=== PATIENT | female | born 1980 | race Caucasian/White ===

== ENCOUNTER → 2017-08-08 | Outpatient (CLI) | payer OTHER ==
--- NOTE | 2017-08-08 12:52 | US ---
EXAMINATION TYPE: US pelvic complete DATE OF EXAM: 08/08/2017 COMPARISON: NONE CLINICAL HISTORY: E28.2 POLYCYSTIC OVARIAN SYNDROME. TECHNIQUE: . Transabdominal sonographic images of the pelvis were acquired. Patient declined transv aginal sonographic images at this time. Date of LMP: 2-3 weeks ago EXAM MEASUREMENTS: Uterus: 7.1 x 3.4 x 4.1 cm Endometrial Stripe: 0.4 cm Right Ovary: 3.7 x 2.2 x 1.8 cm Left Ovary: 2.5 x 1.8 x 1.4 cm 1. Uterus: Anteverted wnl 2. Endometrium: wnl 3. Right Ovary: Echogenic foci visualized measuring 0.3 cm 4. Left Ovary: wnl 5. Bilateral Adnexa: wnl 6. Posterior cul-de-sac: wnl IMPRESSION: 1. Suspicious peripheral follicles on the ovaries to suggest polycystic ovarian disease are not evide nt on the current examination. 2. Small echogenic foci without shadowing within the right ovary. Follow-up is recommended.
== END | disposition home or self-care (01) ==
LOC: RADUSWWP 07:03
PROVIDERS: ATTEND Internal Medicine Endocrinology, Diabetes & Metabolism
DX: E28.2 Polycystic ovarian syndrome (principal)
CPT/HCPCS: 76856

== ENCOUNTER → 2018-03-31 | Outpatient (CLI) | payer OTHER ==
--- NOTE | 2018-03-31 13:32 | MM ---
Reason for exam: clinical finding. Baseline mammogram. History: Patient has history of other cancer at age 26. Took hormonal contraceptives beginning at age 18. Physical Findings: Nurse Summary: 0.5cm nodule in the right breast at 12 o'clock and 6 o'clock (nurse kp). MG 3D Diag Mammo W/Cad BREONNA Bilateral CC and MLO view(s) were taken. The breast tissue is heterogeneously dense. This may lower the sensitivity of mammography. There is a 8 x 5mm mass upper outer quadrant 10cm from nipple on the left that persists on additional views. Stereotactic core biopsy recommended. No suspicious abnormality on the right. These results were verbally communicated with the patient and result sheet given to the patient on 03/31/18. ASSESSMENT: Incomplete: need additional imaging evaluation, BI-RAD 0 RECOMMENDATION: Ultrasound of both breasts. (right palpable, left upper inner quadrant)
--- NOTE | 2018-03-31 13:35 | USB ---
Reason for exam: additional evaluation requested from abnormal screening. History: Patient has history of other cancer at age 26. Took hormonal contraceptives beginning at age 18. US Breast Limited BILAT Right limited breast ultrasound including focal area of concern, retroareolar and axilla demonstrates a 0.6 x 0.4 x 0.7cm mixed, hypoechoic lesion at 8 o'clock for which a biopsy is recommended and duct ectasia at the nipple. Left limited breast ultrasound including focal area of concern, retroareolar and axilla demonstrates a 0.5 x 0.3cm elongated lesion at 8 o'clock, appears as fibroglandular tissue. These results were verbally communicated with the patient and result sheet given to the patient on 03/31/18. ASSESSMENT: Suspicious, BI-RAD 4 RECOMMENDATION: Ultrasound core biopsy of the right breast. Stereotactic core biopsy of the left breast. Called Dr. Pacheco with mammographic findings and has scheduled an appointment for the patient for 04/10/18 at 11:[address] Art. Biopsy scheduled for 04/16/18 at 8 o'clock. PRELIMINARY REPORT CALLED AND FAXED TO DR. ART ON 03/31/18.
== END | disposition home or self-care (01) ==
LOC: RADMAMWWP 09:30
PROVIDERS: ATTEND Family Medicine
DX: R92.8 Other abnormal and inconclusive findings on diagnostic imaging of breast (principal); N63.10 Unspecified lump in the right breast, unspecified quadrant
CPT/HCPCS: 77062; 77066

== ENCOUNTER → 2018-04-10 | Outpatient (CLI) | payer SELFPAY ==
[2018-04-10 12:55] VITALS: BP 123/75; PULSE 107; RESP 20; TEMP 98.4; BMI 36.0
--- NOTE | 2018-04-10 13:34 | P.GSHP ---
History of Present Illness H&P Date: 04/10/18 Chief Complaint: Palpable abnormality left breast, radiographic abnormality by ultrasound an The patient is a 38-year-old white female who approximately July of this year noticed some nodularity in the lower left breast. This has increased in size. It is not cyclical in nature and is nontender. As a result of that she underwent radiographic workup and on radiographic workup a separate area of the left breast in the upper outer quadrant region was noted to have increased nodularity. This is an 8 x 5 mm mass at the upper outer quadrant 10 cm from the nipple which persisted on additional views. Ultrasound of this area did not reveal any specific lesion of concern in the left breast. In the right breast however on ultrasound she was noted to have a 0.6 x 0.7 cm mixed hypoechoic lesion at 8:00 for which ultrasound-guided core biopsy was recommended. She has no history of any trauma or infection in her breast. Family History: 1. ? colon cancer on her mothers side uncertain as her mother is adopted Hormonal history: Menarche: 14 Pregnancies: 3, 3 children, first born at 19, did not breast-feed periods: irregular BCP: none hormones: none Past surgical history: 1. 2 2. LEEP procedure 3. Ablation 4. Tonsillectomy Past medical history: 1. hyperactive thyroid/radioactive iodine Graves disease 2. hypothyroid now 3. HPV Social History: smoke: none alcohol: 1x/month drugs: Marijuana relational daily - EENT Eyes: denies blurred vision, denies pain Ears: deny: decreased hearing, tinnitus Ears, nose, mouth and throat: Denies headache, Denies sore throat - Breasts Breasts: bilateral: as per HPI - Cardiovascular Cardiovascular: Denies chest pain, Denies shortness of breath - Respiratory Comment: chronic bronchitis Respiratory: Denies cough, Denies 7 - Genitourinary (Female) Comment: irregular periods Genitourinary: Denies dysuria, Denies hematuria - Menstruation Comment: Status post uterine ablation Menstruation: Reports cycle variable - Musculoskeletal Comment: 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 left sciatica - Integumentary Integumentary: Denies pruritus, Denies rash - Neurological Neurological: Denies numbness, Denies weakness - Psychiatric Psychiatric: Denies anxiety, Denies depression - Endocrine Comment: hypothyroid - Hematologic/Lymphatic Comment: none - Allergic/Immunologic Comment: as above Past Medical History Past Medical History: Cancer, Thyroid Disorder Additional Past Medical History / Comment(s): cervical History of Any Multi-Drug Resistant Organisms: None Reported Past Surgical History: Section, Tonsillectomy Past Anesthesia/Blood Transfusion Reactions: No Reported Reaction Past Psychological History: Depression Smoking Status: Never smoker Past Alcohol Use History: Occasional Past Drug Use History: Marijuana - Past Family History Mother Family Medical History: Thyroid Disorder Father History Unknown: Yes Medications and Allergies Home Medications Medication Instructions Recorded Confirmed Type Levothyroxine Sodium 137 mcg PO DAILY 04/08/18 04/10/18 History Allergies Allergy/AdvReac Type Severity Reaction Status Date / Time aspirin Allergy Rash/Hives Verified 04/08/18 12:52 codeine Allergy Rash/Hives Verified 04/08/18 12:52 Surgical - Exam Vital Signs Temp Pulse Resp BP Pulse Ox 98.4 F 107 H 20 123/75 100 04/10/18 12:49 04/10/18 12:49 04/10/18 12:49 04/10/18 12:49 04/10/18 12:49 BMI 36 - General well developed, well nourished, no distress, obese - Eyes normal ocular movement - ENT no hearing loss, no congestion - Neck no masses, trachea midline - Respiratory normal respiratory effort, clear to auscultation - Cardiovascular Rhythm: regular Heart Sounds: normal: S1, S2 - Abdomen Abdomen: soft, non tender, no guarding, no rigid, no rebound - Integumentary no rash, no abnormal pigmentation - Musculoskeletal normal gait, normal posture - Psychiatric oriented to time, oriented to person, oriented to place, speech is normal, memory intact Rest examination: Right breast: Multiple positional exam no dominant masses or nodules of concern there is some prominent inframammary ridge tissue but nothing of concern, the right breast is smaller than the left breast Right axilla: No adenopathy of concern Left breast: Multi-positional exam dominant masses or nodules of concern Left axilla: No adenopathy of concern Results mammogram and ultrasound reports reviewed Assessment and Plan Assessment: Impression: 1. Patient with radiographic abnormality ultrasound abnormality right breast for ultrasound-guided core biopsy 2. Patient with mammographic abnormality left breast are detected core biopsy of left breast 3. Hypothyroidism 4. Intermittent sciatica 5. PVD . Fibrocystic change prominent inframammary ridge on the right breast lower inner quadrant Plan: 1. Right breast ultrasound-guided core biopsy 2. Stereotactic core biopsy of the left breast 3. Follow-up 1 week after biopsies Her. Close clinical surveillance prominent inframammary ridge on the right The skin benefits history tactic an ultrasound core biopsies were discussed with the patient she wishes to proceed this will be scheduled in the near future. CC: Dr. Pacheco
== END ==
LOC: WWCWWP 12:25
PROVIDERS: ATTEND Surgery
DX: Z53.9 Procedure and treatment not carried out, unspecified reason (principal)

== ENCOUNTER → 2018-04-16 | Day surgery (SDC) | payer OTHER ==
[2018-04-16 07:26] VITALS: RESP 16; BMI 34.9
[2018-04-16 09:06] VITALS: BP 107/72; PULSE 69; TEMP 97.9
--- NOTE | 2018-04-16 10:10 | MM ---
EXAMINATION TYPE: MG stereo VAD BX LT DATE OF EXAM: 04/16/2018 COMPARISON: Prior mammogram March 31, 2018. CLINICAL HISTORY: Abnormal mammogram TECHNIQUE: Stereotactic guided core biopsy of left breast. FINDINGS: The procedure of stereotactic guided core biopsy was explained to the patient. Benefits, alternatives, and risks were discussed. An informed consent was then obtained. Cranial pathway was chosen as lesion is best seen on CC view. I performed the localization, then surgeon, Dr. Art performed the remainder of the procedure. A vacuum assisted biopsy gun was used to obtain multiple core samples. The patient tolerated the procedure well without any immediate complication. The patient was kept in the radiology department for short stay after the procedure and then discharged home in stable condition. Post biopsy mammogram shows the clip to appear in satisfactory position relative to the targeted area of concern on the preprocedure images. IMPRESSION: SUCCESSFUL, UNCOMPLICATED STEREOTACTIC GUIDED CORE BIOPSY OF AREA OF CONCERN IN THE LEFT BREAST, FULL PATHOLOGY RESULTS TO FOLLOW. Low index of suspicion noted at time of procedure. Favor low lying benign lymph node. Pathology Results: Benign LEFT BREAST, STEREOTACTIC CORE BIOPSY: Fibroadenoma. Background fibrocystic changes including rare microcalcifications. Recommendation Follow up mammogram of the left breast in 6 months. MTDD
--- NOTE | 2018-04-16 10:48 | USB ---
EXAMINATION TYPE: US discontinued breast core RT DATE OF EXAM: 04/16/2018 CLINICAL HISTORY: R92.8 ABNORMAL MAMMOGRAM. Abnormal ultrasound. TECHNIQUE: Ultrasound guided core biopsy of right breast. COMPARISON: Prior bilateral breast ultrasound March 31, 2018. FINDINGS: The procedure of ultrasound guided core biopsy was explained to the patient. Benefits, alt ernatives, and risks were discussed. An informed consent was then obtained. The patient was placed in supine positioning for imaging and for the procedure. Preprocedure scannin g however failed to show persistent suspicious oval hypoechoic 6 x 4 x 7 mm lesion 8:00 position zone B C of the right breast. Because persistent suspicious lesion did not persist, biopsy was canceled. Reason for cancellation of biopsy was explained to patient. Patient was agreeable to short-term follo w-up ultrasound in 6 months time and cancellation. IMPRESSION: Unsuccessful, canceled ultrasound guided core biopsy of area of concern in the right norma st, suspicious lesion not identified today. BI-RADS 3 probable benign findings. Recommendation: Precautionary 6 month follow-up diagnostic right breast ultrasound.
--- NOTE | 2018-04-16 13:43 | P.OP ---
Date of Procedure: 04/16/18 Preoperative Diagnosis: Left breast upper inner quadrant nodular area not seen on ultrasound Postoperative Diagnosis: Same Procedure(s) Performed: Left breast stereotactic core biopsy Anesthesia: local Surgeon: Judy Art Estimated Blood Loss (ml): 0 Pathology: other (Breast tissue) Condition: stable Disposition: same day Indications for Procedure: Area of nodularity in the left breast upper inner quadrant area of concern on mammogram, this was not documented on ultrasound, therefore stereotactic core biopsy was recommended Operative Findings: Breast tissue Description of Procedure: The patient was taken to the sterile tactic core biopsy room. The patient preoperatively had undergone bilateral breast examination were noted no dominant masses or nodules of concern were identified in either breast. The risks and benefits of the procedure including bleeding and infection reaction to the anesthetic and alternatives including watchful waiting versus open biopsy in the operating room were discussed with the patient. She wished to proceed with stereotactic core biopsy. The patient was positioned on the low rad biopsy table. The nodular area of concern in the left breast in the upper inner quadrant was identified on a french teacher film. Stereotactic. Films were then obtained. A CC from above approach was utilized. The skin was prepped using Betadine. Approximately 15 mL of 1% lidocaine was used to anesthetize the area of concern. The needle was driven to the correct target coordinates and a prefire film was obtained. This was felt to be in the correct location. The needle was fired and post-fire films were obtained. The area was somewhat obscure and difficult to see but it was felt that this was in the correct location. Proximally 13 core biopsies were obtained using a 9-gauge vacuum- assisted rotating needle device. Following the procedure no radiograph of the specimen was obtained as there were no calcifications. A secure marked top Marker was utilized. There were no immediate postoperative complications. The patient tolerated the procedure in stable condition. The specimen was sent to pathology. The patient will follow-up with Dr. Odell in 1 week.
== END | disposition home or self-care (01) ==
LOC: RADMAMWWP 07:06
PROVIDERS: ATTEND Surgery
DX: D24.2 Benign neoplasm of left breast (principal); Z88.6 Allergy status to analgesic agent; Z88.5 Allergy status to narcotic agent; Z53.09 Procedure and treatment not carried out because of other contraindication; R92.8 Other abnormal and inconclusive findings on diagnostic imaging of breast
CPT/HCPCS: 88305; 19081; 76641; 19083; A4648; J2001

== ENCOUNTER → 2018-04-24 | Outpatient (CLI) | payer BC, OTHER ==
[2018-04-24 15:06] VITALS: BP 112/68; PULSE 69; RESP 20; TEMP 97; BMI 40.7
--- NOTE | 2018-04-24 15:22 | P.PN ---
Progress Note - Text Progress Note Date: 04/24/18 The patient is a 38-year-old white female status post stereotactic core biopsy of area of concern in the left breast. This was performed on . Pathology was consistent with a fibroadenoma. Additionally she had been noted to have an area of concern in the right breast for which ultrasound-guided core biopsy was recommended. However upon repeating the ultrasound the area of concern was not persistent. Therefore was recommended that she have a repeat right breast ultrasound in 6 months. Physical exam: Lungs: Clear Heart: Regular rate and rhythm Left breast puncture site clean and dry no evidence of infection The pathology results of been discussed with the patient and her . They have been told that this is a of fibroadenoma which is a benign lesion. We will do a repeat left breast mammogram and right breast ultrasound in 6 months time. Impression: 1. Fibroadenoma left breast 2. Ultrasound abnormality right breast which did not persist Plan: 1. Mammogram left breast in 6 months 2. Ultrasound right breast in 6 months 3. Physician exam in 6 months
== END ==
LOC: WWCWWP 12:13
PROVIDERS: ATTEND Surgery
DX: Z53.9 Procedure and treatment not carried out, unspecified reason (principal)